=== PATIENT | female | born 1985 | race Caucasian/White ===

== ENCOUNTER 2016-08-03 05:27 | Day surgery (SDC) | payer BC, OTHER ==
[~2016-08-03] VITALS: Ht 157.5 cm; Wt 97.5 kg
[~2016-08-03 05:27] MED LIST: EXPECTA PRENAT1 EACH PO; FERROCITE324 MG PO; IBUPROFEN800 MG PO; MEDROL DOSEPAK4 MG PO; MIRENA52 MG IY; MOTRIN IB200 MG PO; PROAIR HFA8.5 GM IH; ROBITUSSIN AC,T10 ML PO; ZITHROMAX500 MG PO
[2016-08-03 06:52] VITALS: BP 119/68
[2016-08-03] MEDS ORDERED: DILAUDID2 MG PO (08:28)
[2016-08-03] MEDS ORDERED: MOTRIN800 MG PO (08:28)
[2016-08-03 09:20] VITALS: BP 107/69
[2016-08-03 09:45] VITALS: BP 120/68
== END 2016-08-03 10:05 | disposition home or self-care (01) ==
LOC: SDC 05:27
DX: Z30.2 Encounter for sterilization (principal); Z30.432 Encounter for removal of intrauterine contraceptive device; F17.200 Nicotine dependence, unspecified, uncomplicated; J45.909 Unspecified asthma, uncomplicated; F31.9 Bipolar disorder, unspecified; K21.9 Gastro-esophageal reflux disease without esophagitis; E66.9 Obesity, unspecified; Z68.41 Body mass index [BMI] 40.0-44.9, adult; Z88.5 Allergy status to narcotic agent; Z91.09 Other allergy status, other than to drugs and biological substances; Z82.49 Family history of ischemic heart disease and other diseases of the circulatory system; Z81.8 Family history of other mental and behavioral disorders; Z83.3 Family history of diabetes mellitus; Z82.3 Family history of stroke; Z80.0 Family history of malignant neoplasm of digestive organs
CPT/HCPCS: J0131; J1100; J1885; J2250; J2405; J2710; J3010; S0020

== ENCOUNTER 2017-01-10 07:48 | Emergency (ER) | payer BC ==
[~2017-01-10] VITALS: Ht 157.5 cm; Wt 98.5 kg
[~2017-01-10 07:48] MED LIST changes: +DILAUDID2 MG PO; +MOTRIN800 MG PO
[2017-01-10] MEDS ORDERED: CIPRODEX OTIC7.5 ML RIGHT EAR (09:27)
[2017-01-10 09:45] VITALS: BP 129/82
== END 2017-01-10 09:46 | disposition home or self-care (01) ==
LOC: EME 07:48
DX: H60.91 Unspecified otitis externa, right ear (principal); Z88.8 Allergy status to other drugs, medicaments and biological substances
CPT/HCPCS: 99281; 99284